=== PATIENT | female | born 1960 | race African-American/Black ===

== ENCOUNTER 2023-10-12 04:21 | Emergency (ER) | payer MEDICAID ==
[~2023-10-12] VITALS: Ht 165.1 cm; Wt 68.0 kg
[2023-10-12] MEDS ORDERED: ALBUTEROL (0.083%) 2.5MG/3ML NEB HHN STA (05:30)
[2023-10-12 05:49] LABS: BASOPHILS % 1.1 % (0.0-2.0); EOSINOPHILS % 0.8 % (0.0-5.0); HEMATOCRIT. 23.2 % (36.0-48.0); LYMPHOCYTES % 16.6 % (20.0-50.0); MEAN CORPUSCULAR HEMOGLOBIN 16.7 pg (28.0-32.0); MEAN CORPUSCULAR HGB CONC 28.4 g/dL (31.0-37.0); MEAN PLATELET VOLUME 6.3 fl (7.4-10.4); MONOCYTES % 5.9 % (2.0-8.0); NEUTROPHILS % 75.6 % (40.0-76.0); PLATELET 525 x1000/uL (130-400); RED BLOOD CELL COUNT 3.94 mill/uL (4.2-5.4); WHITE BLOOD COUNT 9.4 x1000/uL (4.5-11.0)
[2023-10-12 06:03] LABS: ALANINE AMINOTRANSFERASE 17 IU/L (10-49); ALBUMIN 3.6 g/dL (3.2-4.8); ASPARTATE AMINOTRANSFERASE 30 IU/L (<34); BILIRUBIN TOTAL 0.4 mg/dL (0.1-1.0); CALCIUM 8.5 mg/dL (8.7-10.4); CARBON DIOXIDE 25 mEq/L (21-32); CHLORIDE 106 mEq/L (98-107); CREATININE 0.7 mg/dL (0.6-1.0); GLUCOSE 130 mg/dL (70-105); POTASSIUM 3.3 mEq/L (3.5-5.1); PROTEIN TOTAL 6.4 g/dL (6.0-8.3); SODIUM 138 mEq/L (136-145); TROPONIN I HIGH SENSITIVITY 10 ng/L (3.0-34); UREA NITROGEN BLOOD 6 mg/dL (9-23)
[2023-10-12 06:07] VITALS: PULSE 72; RESP 16; O2SAT 100
[2023-10-12] MEDS ORDERED: ALBU6.7H15 INH (06:37)
[2023-10-12] MEDS ORDERED: GUAI200T5 PO (06:37)
[2023-10-12 06:38] LABS: DIFFERENTIAL COMMENT 1
[2023-10-12 06:39] LABS: ADD RBC MORPHOLOGY YES
[2023-10-12 07:07] VITALS: BP 149/75; PULSE 74; RESP 13; TEMP 98
[2023-10-12 07:11] LABS: ANISOCYTOSIS 1+; HYPOCHROMASIA 1+; MICROCYTOSIS 1+; PLATELET ESTIMATE NORMAL
[2023-10-13 00:12] LABS: HEMOGLOBIN. 6.6 g/dL (12.0-16.0)
== END 2023-10-12 07:13 | disposition home or self-care (01) ==
LOC: ER 04:21
DX: J40 Bronchitis, not specified as acute or chronic (principal); R05.9 Cough, unspecified
CPT/HCPCS: 80053; 83880; 85025; 84484; 36415; 71045; 94640; 99284; Z7610 ×3